=== PATIENT | female | born 1930 | race Caucasian/White ===

== ENCOUNTER 2016-10-06 20:34 | Inpatient (IN) ==
[2016-10-06] MEDS ORDERED: Furosemide 40 MG/4 ML VIAL IVP ONE (21:07)
--- NOTE | 2016-10-06 21:10 | Emergency Department Note ---
Disposition Clinical Impression: Pneumonia Qualifiers: Aspiration pneumonia type: unspecified Laterality: bilateral Lung location: lower lobe of lung Disposition: Admitted As Inpatient Condition: Critical Referrals: Genna Viveros MD [Primary Care Provider] - Forms: ED Satisfaction Letter Time of Disposition: 23:31 SOB HPI - General Chief Complaint: ED Shortness of Breath/Dyspnea Stated Complaint: KENIA Time Seen by Provider: 10/06/16 20:50 Source: EMS Limitations: altered mental status Nursing Notes Reviewed: Yes Vital Signs Reviewed: Yes - History of Present Illness 78-year-old female sent from snf with progressive shortness of breath over the past 2-3 days. She is retaining water. Patient denies any chest pain. Complains of shortness of breath. - Related Data Home Medications Medication Instructions Recorded Confirmed Atorvastatin [Lipitor] 20 mg PO HS 06/12/15 10/06/16 Carboxymethylcellulose Sodium 15 ml OP BID 06/12/15 10/06/16 [Refresh Tears] Chlorhexidine Gluconate [Peridex] 15 ml MM BID 06/12/15 10/06/16 Citalopram [CeleXA] 10 mg PO DAILY 06/12/15 10/06/16 Ergocalciferol (VITAMIN D2) 50,000 unit PO QMONTH 06/12/15 10/06/16 [Vitamin D2 (50,000 UNIT)] Fluticasone Propionate [Flovent 12 gm IH DAILY 06/12/15 10/06/16 Hfa] Furosemide [Lasix] 80 mg PO BID 06/12/15 10/06/16 Loratadine [Claritin] 10 mg PO DAILY 06/12/15 10/06/16 Montelukast [Singulair] 10 mg PO DAILY 06/12/15 10/06/16 Omeprazole [PriLOSEC] 20 mg PO DAILY 06/12/15 10/06/16 Potassium Chloride [Klor-Con 10 meq PO TID 06/12/15 10/06/16 Sprinkle] Ipratropium/Albuterol Neb [Duoneb] 3 ml IH Q2H PRN 04/12/16 10/06/16 Iron Polysaccharide Complex 150 mg PO DAILY 04/12/16 10/06/16 [Ferrex 150] Lisinopril [Zestril] 20 mg PO DAILY 04/12/16 10/06/16 Amoxicillin/Clavulanate [Augmentin] 875 mg PO BIDWM 07/31/16 10/06/16 Anastrozole [Arimidex] 1 mg PO DAILY 07/31/16 10/06/16 Guaifenesin [Mucinex] 600 mg PO BID 07/31/16 10/06/16 Loperamide [Imodium] 2 mg PO Q4HR PRN 07/31/16 10/06/16 Multivitamin,Stress Formula 1 each PO DAILY 07/31/16 10/06/16 [Stress Formula] Allergies Allergy/AdvReac Type Severity Reaction Status Date / Time No Known Allergies Allergy Verified 06/12/15 14:37 Limitations: ROS unobtainable due to patients medical condition Cardiovascular: Denies: chest pain, palpitations, dyspnea on exertion, edema, syncope Respiratory: Reports: dyspnea Gastrointestinal: Denies: abdominal pain, nausea, vomiting, diarrhea, constipation, hematemesis, melena, hematochezia Past Medical History - Past Medical History Medical history: Reports: asthma, CHF, COPD, dementia, diabetes, GERD, hyperlipidemia, hypertension, other Surgical history: Reports: breast surgery Psychiatric history: Reports: anxiety, depression [employer] PERSON history: Reports: no [employer]ERSON history - Social History Smoking Status: Never smoker Smokeless Tobacco Status: No Alcohol use: Reports: none Drug use: Reports: none Physical Exam - General Limitations: altered mental status General appearance: lethargic, in distress - Chest Chest inspection: Present: normal inspection, symmetric chest wall rise - Respiratory Respiratory exam: Present: respiratory distress - Cardiovascular Cardiovascular exam: Present: tachycardia - Abdominal Exam Abdominal exam: Present: soft, Non-Tender. Absent: tenderness, distention, guarding, rebound, rigidity - Extremities Exam Extremities exam: Present: pedal edema - Neurological Exam Neurological exam: Present: alert - Psychiatric Psychiatric exam: Present: depressed - Skin Skin exam: Present: warm Course Vital Signs Temperature 98.1 F 10/06/16 20:46 Pulse Rate 111 10/06/16 20:46 Respiratory Rate 22 10/06/16 20:46 Blood Pressure 100/75 10/06/16 20:46 O2 Sat by Pulse Oximetry 93 L 10/06/16 20:46 Temperature 98.1 F 10/06/16 20:46 Pulse Rate 111 10/06/16 20:46 Respiratory Rate 22 10/06/16 20:46 Blood Pressure 100/75 10/06/16 20:46 O2 Sat by Pulse Oximetry 93 L 10/06/16 20:46 Oxygen Delivery Oxygen Delivery Bipap Shortness of Breath/Dyspnea - MDM Narrative Medical decision making narrative: Diagnosis. Pneumonia Decreased level of consciousness Hypotension ED course. The patient was placed on BiPAP. Adequate oxygenation with BiPAP. IV antibiotics started. Blood cultures is obtained. Fluid bolus given Plan. Lengthy discussion with the family. The son was here. I initially suggested transferring the patient to a tertiary care hospital. He tells me that the family wants comfort care measure. They do not want any aggressive intervention. They want to give the patient a chance for 1-2 days on IV antibiotics. Again, the family requested only Comfort Care measure at this stage. - Lab Data Lab results reviewed: Yes I reviewed the patient's lab results. Result diagrams: 10/06/16 21:45 10/06/16 21:45 Lab Results 10/06/16 10/06/16 10/06/16 Range/Units 21:45 21:45 21:45 WBC 9.9 (4.3-11.1) K/mcL RBC 4.22 (3.82-4.97) M/mcL Hgb 11.9 (11.5-15.4) g/dL Hct 38.0 (35.3-44.9) % MCV 90.0 (83.0-100.0) fL MCH 28.2 (28.0-33.3) pg MCHC 31.3 L (31.6-35.5) g/dL RDW 14.3 (11.5-14.5) % Plt Count 159 (140-400) K/mcL MPV 10.0 (9.4-12.4) fL Immature Gran % 0.5 (0-4) % Seg Neutrophils % 86.0 % Lymphocytes % 9.3 % Monocytes % 3.8 % Eosinophils % 0.3 % Basophils % 0.1 % Neutrophils # 8.5 (1.6-8.9) K/mcL Lymphocytes # 0.9 (0.6-4.6) K/mcL Monocytes # 0.4 (0.0-1.3) K/mcL Eosinophils # 0.0 (0.0-0.6) K/mcL Basophils # 0.0 (0.0-0.2) K/mcL Sodium 134 L (136-145) mEq/L Potassium 3.8 (3.5-4.5) mEq/L Chloride 95 L (98-109) mEq/L Carbon Dioxide 28 (19-29) mEq/L BUN 13 (7-20) mg/dL Creatinine 0.90 (0.57-1.11) mg/dL Est GFR ( Amer) > 60 (> 60) Est GFR (Non-Af Amer) 59 L (> 60) BUN/Creatinine Ratio 14 (6-26) Glucose 194 H (70-99) mg/dL Calculated Osmolality 283 (280-300) Calcium 8.6 (8.6-10.8) mg/dL Total Bilirubin 0.4 (0.2-1.2) mg/dL AST 72 H (5-34) Units/L ALT 50 (0-55) Units/L Alkaline Phosphatase 93 (38-126) Units/L Troponin I 0.11 H* (0-0.03) ng/mL B-Natriuretic Peptide (0-100) pg/mL Serum Total Protein 6.1 (6.0-8.3) g/dL Albumin 2.7 L (3.5-5.0) g/dL Globulin 3.4 (2.4-3.5) g/dL Albumin/Globulin Ratio 0.8 L (1.1-2.2) / Range/Units 21:45 WBC (4.3-11.1) K/mcL RBC (3.82-4.97) M/mcL Hgb (11.5-15.4) g/dL Hct (35.3-44.9) % MCV (83.0-100.0) fL MCH (28.0-33.3) pg MCHC (31.6-35.5) g/dL RDW (11.5-14.5) % Plt Count (140-400) K/mcL MPV (9.4-12.4) fL Immature Gran % (0-4) % Seg Neutrophils % % Lymphocytes % % Monocytes % % Eosinophils % % Basophils % % Neutrophils # (1.6-8.9) K/mcL Lymphocytes # (0.6-4.6) K/mcL Monocytes # (0.0-1.3) K/mcL Eosinophils # (0.0-0.6) K/mcL Basophils # (0.0-0.2) K/mcL Sodium (136-145) mEq/L Potassium (3.5-4.5) mEq/L Chloride (98-109) mEq/L Carbon Dioxide (19-29) mEq/L BUN (7-20) mg/dL Creatinine (0.57-1.11) mg/dL Est GFR ( Amer) (> 60) Est GFR (Non-Af Amer) (> 60) BUN/Creatinine Ratio (6-26) Glucose (70-99) mg/dL Calculated Osmolality (280-300) Calcium (8.6-10.8) mg/dL Total Bilirubin (0.2-1.2) mg/dL AST (5-34) Units/L ALT (0-55) Units/L Alkaline Phosphatase (38-126) Units/L Troponin I (0-0.03) ng/mL B-Natriuretic Peptide 78 (0-100) pg/mL Serum Total Protein (6.0-8.3) g/dL Albumin (3.5-5.0) g/dL Globulin (2.4-3.5) g/dL Albumin/Globulin Ratio (1.1-2.2) - Radiology Data Radiology results reviewed: Yes I reviewed the patient's radiology results. No pneumoperitoneum. The appearance on conventional radiographs is caused by collapse of the middle lobe with aerated right lower lobe beneath. 2. Significant secretions in the middle lobe and right lower lobe airways with complete collapse of the middle lobe and right lower lobe atelectasis or pneumonia. 3. Coronary artery disease. 4. Pulmonary hypertension. 5. Diverticulosis without scan evidence for diverticulitis. 6. Bilateral nonobstructing renal calculi.
[2016-10-06 21:57] LABS: Basophils % 0.1 %; Eosinophils % 0.3 %; Hemoglobin 11.9 g/dL (11.5-15.4); Immature Granulocytes % 0.5 % (0-4); Lymphocytes # 0.9 K/mcL (0.6-4.6); Lymphocytes % 9.3 %; Mean Corpuscular HGB Conc 31.3 g/dL (31.6-35.5); Mean Corpuscular Hemoglobin 28.2 pg (28.0-33.3); Monocytes # 0.4 K/mcL (0.0-1.3); Monocytes % 3.8 %; Neutrophils # 8.5 K/mcL (1.6-8.9); Platelet Count 159 K/mcL (140-400); Red Blood Count 4.22 M/mcL (3.82-4.97); Red Cell Distribution Width 14.3 % (11.5-14.5)
[2016-10-06 22:10] LABS: Albumin 2.7 g/dL (3.5-5.0); Albumin/Globulin Ratio 0.8 (1.1-2.2); Alkaline Phosphatase 93 Units/L (38-126); Bilirubin,Total 0.4 mg/dL (0.2-1.2); Blood Urea Nitrogen 13 mg/dL (7-20); Calcium 8.6 mg/dL (8.6-10.8); Carbon Dioxide 28 mEq/L (19-29); Chloride 95 mEq/L (98-109); Globulin 3.4 g/dL (2.4-3.5); Glucose 194 mg/dL (70-99); Osmolality,Calculated 283 (280-300); Potassium 3.8 mEq/L (3.5-4.5); Sodium 134 mEq/L (136-145); Total Protein 6.1 g/dL (6.0-8.3)
[2016-10-06 22:11] LABS: Alanine Aminotransferase 50 Units/L (0-55); Aspartate Amino Transferase 72 Units/L (5-34); BUN/Creatinine Ratio 14 (6-26); eGFR For African Americans > 60 (> 60); eGFR For Non-African Americans 59 (> 60)
[2016-10-06] MEDS ORDERED: 0.9 % Sodium Chloride 500 ML IVC ONE (23:06)
[2016-10-06] MEDS ORDERED: Levofloxacin 500 MG/100 ML 500 MG/100 ML BAG IVPB ONE ×2 (23:18→23:38)
[2016-10-07] MEDS: Levofloxacin 500 MG/100 ML 500 MG/100 ML BAG IVPB SCH (01:20)
[2016-10-07] MEDS: *HR* Enoxaparin 30 MG/0.3 ML SYRINGE SQ SCH (09:03)
[2016-10-07] MEDS: Ipratropium/Albuterol Neb 3 ML IH PRN ×4 (09:03→21:43)
[2016-10-08] MEDS: Levofloxacin 500 MG/100 ML 500 MG/100 ML BAG IVPB SCH (00:22)
[2016-10-08] MEDS: *HR* Enoxaparin 30 MG/0.3 ML SYRINGE SQ SCH (05:54)
[2016-10-08] MEDS: Ipratropium/Albuterol Neb 3 ML IH PRN ×3 (05:55→15:37)
--- NOTE | 2016-10-08 14:22 | Internal Med Progress Note ---
Date of Encounter: 10/08/16 Time of Encounter: 14:00 - Assessment and plan (1) Pneumonia Current Visit: Yes Status: Resolved Assessment and plan: I will follow chest x-ray. Qualifiers: Qualified Code(s): J18.9 - Pneumonia, unspecified organism (2) COPD (chronic obstructive pulmonary disease) Current Visit: Yes Status: Acute Assessment and plan: A she does have significant COPD. His paternal chronic problem Qualifiers: Qualified Code(s): J44.9 - Chronic obstructive pulmonary disease, unspecified - Time Spent With Patient less than 15 minutes - Subjective Interval history: Patient denies any problems. Go to follow chest x-ray and redo labs in the a.m. Saad also use diuretic - Constitutional Vitals: Temp Pulse Resp BP Pulse Ox 99.4 F 98 22 126/63 94 L 10/08/16 11:43 10/08/16 11:43 10/08/16 11:43 10/08/16 11:43 10/08/16 11:43 - Head Head exam: Present: atraumatic, normal inspection, normocephalic - Neck Neck exam general surgery: Present: supple, trachea midline. Absent: lymphadenopathy - Respiratory Respiratory exam: Present: CTAB. Absent: accessory muscle use, rales, rhonchi, wheezes - Cardiovascular Cardiovascular exam: Present: RRR, +S1, +S2. Absent: diastolic murmur, gallop, rubs, systolic murmur - GI/Abdominal GI/Abdominal exam: Present: normal bowel sounds, soft, no peritoneal signs. Absent: distended, tenderness Internal Medicine: Result - Labs CBC & Chem 7: 10/06/16 21:45 10/06/16 21:45 Labs: Lab is stable Consult Discharge Plan - Plan Referrals: Genna Viveros MD [Primary Care Provider] -
[2016-10-08] MEDS: Furosemide 40 MG TABLET PO SCH (16:47)
[2016-10-09] MEDS: *HR* Enoxaparin 30 MG/0.3 ML SYRINGE SQ SCH (04:48)
[2016-10-09 05:58] LABS: Basophils % 0.2 %; Eosinophils % 0.8 %; Hematocrit 38.5 % (35.3-44.9); Hemoglobin 12.2 g/dL (11.5-15.4); Immature Granulocytes % 0.4 % (0-4); Lymphocytes # 1.1 K/mcL (0.6-4.6); Lymphocytes % 21.9 %; Mean Corpuscular HGB Conc 31.7 g/dL (31.6-35.5); Mean Corpuscular Hemoglobin 28.2 pg (28.0-33.3); Mean Corpuscular Volume 88.9 fL (83.0-100.0); Mean Platelet Volume 10.3 fL (9.4-12.4); Monocytes # 0.7 K/mcL (0.0-1.3); Monocytes % 13.4 %; Neutrophils # 3.2 K/mcL (1.6-8.9); Platelet Count 158 K/mcL (140-400); Red Blood Count 4.33 M/mcL (3.82-4.97); Red Cell Distribution Width 14.5 % (11.5-14.5); Segmented Neutrophils % 63.3 %
[2016-10-09 06:03] LABS: BUN/Creatinine Ratio 17 (6-26); Blood Urea Nitrogen 11 mg/dL (7-20); Calcium 9.1 mg/dL (8.6-10.8); Carbon Dioxide 30 mEq/L (19-29); Chloride 100 mEq/L (98-109); Glucose 96 mg/dL (70-99); Osmolality,Calculated 293 (280-300); Potassium 3.6 mEq/L (3.5-4.5); Sodium 142 mEq/L (136-145); eGFR For African Americans > 60 (> 60); eGFR For Non-African Americans > 60 (> 60)
[2016-10-09] MEDS: Furosemide 40 MG TABLET PO SCH ×2 (08:26→17:35)
[2016-10-09] MEDS: Levofloxacin 750 MG/150 ML 750 MG/150 ML BAG IVPB SCH (08:26)
--- NOTE | 2016-10-09 11:58 | Internal Med History&Physical ---
Date of Encounter: 10/09/16 Time of Encounter: 12:00 Assessment and Plan (1) Pneumonia Current visit: Yes Status: Resolved Patient receiving aggressive pulmonary treatment well without antibiotics. Qualifiers: Qualified Code(s): J18.9 - Pneumonia, unspecified organism (2) COPD (chronic obstructive pulmonary disease) Current visit: Yes Status: Acute Patient has significant history of COPD. She is wheezing prolonged expiratory phase. Qualifiers: Qualified Code(s): J44.9 - Chronic obstructive pulmonary disease, unspecified Internal Medicine - H&P: HPI Admitted From: Emergency Dept Plans for Post Hospital Care: Transfer Long-Term Facility History of present illness: Ms. Cheng is a 86 year old female Past Med Surg Social Fam HX - Past Medical History Medical history: arthritis, asthma, cancer, CHF, COPD, dementia, diabetes, GERD , hyperlipidemia, hypertension, other Psychiatric history: anxiety, depression - Past Surgical History Surgical History: breast surgery - Social History Smoking Status: Never smoker Smokeless Tobacco Status: No Alcohol use: none Drug use: none - Family History Mother History Unknown: Yes Father History Unknown: Yes Living Status: Internal Medicine - H&P: Meds Atorvastatin [Lipitor] 20 mg PO HS 06/12/15 [History] Carboxymethylcellulose Sodium [Refresh Tears] 1 drop OP BID 06/12/15 [History] Chlorhexidine Gluconate [Peridex] 15 ml MM BID 06/12/15 [History] Citalopram [CeleXA] 5 mg PO DAILY 06/12/15 [History] Ergocalciferol (VITAMIN D2) [Vitamin D2 (50,000 UNIT)] 50,000 unit PO QMONTH [History] Furosemide [Lasix] 80 mg PO BID 06/12/15 [History] Loratadine [Claritin] 10 mg PO DAILY 06/12/15 [History] Montelukast [Singulair] 10 mg PO DAILY 06/12/15 [History] Omeprazole [PriLOSEC] 20 mg PO DAILY 06/12/15 [History] Potassium Chloride [Klor-Con Sprinkle] 10 meq PO BID 06/12/15 [History] Ipratropium/Albuterol Neb [Duoneb] 3 ml IH Q6H 04/12/16 [History] Iron Polysaccharide Complex [Ferrex 150] 150 mg PO DAILY 04/12/16 [History] Lisinopril [Zestril] 20 mg PO DAILY 04/12/16 [History] Amoxicillin/Clavulanate [Augmentin] 875 mg PO BIDWM 07/31/16 [History] Anastrozole [Arimidex] 1 mg PO DAILY 07/31/16 [History] Guaifenesin [Mucinex] 600 mg PO BID 07/31/16 [History] Loperamide [Imodium] 2 mg PO Q6H PRN 07/31/16 [History] Multivitamin,Stress Formula [Stress Formula] 1 each PO DAILY 07/31/16 [History] Fluticasone Propionate Nasal [Flonase] 2 spray NS DAILY 10/07/16 [History] Fluticasone/Vilanterol [Breo Ellipta 200-25 Mcg INH] 1 each IH DAILY 10/07/16 [ History] Allergies No Known Allergies Allergy (Verified 06/12/15 14:37) All Systems PM: A 10-system review of systems was performed and is negative for pertinent findings except as documented above in the HPI. - Constitutional Vitals: Temp Pulse Resp BP Pulse Ox 97.7 F 85 16 114/82 94 L 10/09/16 11:47 10/09/16 11:47 10/09/16 11:47 10/09/16 11:47 10/09/16 11:47 - Head Head exam: Present: atraumatic, normal inspection, normocephalic - Neck Neck exam general surgery: Present: supple, trachea midline. Absent: lymphadenopathy - Respiratory Respiratory exam: Present: decreased breath sounds, CTAB, prolonged expiratory phase, respiratory distress. Absent: accessory muscle use, rales, rhonchi, wheezes - Cardiovascular Cardiovascular exam: Present: RRR, +S1, +S2. Absent: diastolic murmur, gallop, rubs, systolic murmur Internal Med - H&P Results - Labs CBC & Chem 7: 10/09/16 05:15 10/09/16 05:15 Labs: Testing lab is stable Short CBC 10/09/16 Range/Units 05:15 WBC 5.1 (4.3-11.1) K/mcL Hgb 12.2 (11.5-15.4) g/dL Hct 38.5 (35.3-44.9) % Plt Count 158 (140-400) K/mcL Neutrophils # 3.2 (1.6-8.9) K/mcL BMP 10/09/16 05:15 Sodium 142 D Potassium 3.6 Chloride 100 Carbon Dioxide 30 H BUN 11 Creatinine 0.65 Glucose 96 Calcium 9.1 - Impressions ITS Impressions Chest X-Ray 10/09/16 14:18 IMPRESSION: Improved aeration of the lungs bilaterally since the prior exam with some residual pleural and parenchymal disease. D/ / Donnell Chiu MD / Donnell Chiu MD Interpreting Provider: Donnell Chiu MD
--- NOTE | 2016-10-09 18:43 | Venous Imaging Report ---
LE Venous Duplex Patient Name:Holley Cheng Order Number:[id number] Procedure Date:10/09/2016 Date:1930ge:86 yrs Gender:Female Location:[facility] Room #: 114 Cable Splicing Technician:Janeen Wang RVT Referring MD:Winston Adams DO creasing and cutting press feeder:Genna Viveros MD Reading MD:Moe Newberry MD Primary Indications:left leg evaluation for DVT Secondary Indications: Risk Factors Yes/No Hx of DVT No Impressions: Normal left lower extremity deep and superficial venous exam. Normal contralateral common femoral vein. Recommendations: Critical findings reported to Dr Adams in person by Janeen Wang RVT. Findings Venous Duplex Results: Right: Venous imaging of the lower extremity reveals full patency and normal vessel compressibility of the right common femoral. Doppler signals in the evaluated veins were normal. Left: Venous imaging of the lower extremity reveals full patency and normal vessel compressibility of the left distal iliac, left common femoral, left superficial femoral, left popliteal, left posterior tibial and left lesser saphenous. Doppler signals in the evaluated veins were normal. Prior Study: No prior study available for comparison. Lower Extremity Venous Duplex Side Vein Compress Spontaneous Flow Augment Diameter (cm) Depth (cm) Left Distal Iliac Normal Yes Phasic Yes Left Common Femoral Normal Yes Phasic Yes Left Superficial Femoral Normal Yes Phasic Yes Left Popliteal Normal Yes Phasic Yes Left Posterior Tibial Normal Yes Phasic Yes Left Lesser Saphenous Normal Yes Phasic Yes Right Common Femoral Normal Yes Phasic Yes Updated by Moe Newberry MD on 10/09/2016 6:37:47 PM electronically signed on 10/09/2016 6:38:01 PM with status of Final
[2016-10-10] MEDS: *HR* Enoxaparin 40 MG/0.4 ML SYRINGE SQ SCH (06:49)
[2016-10-10] MEDS: Furosemide 40 MG TABLET PO SCH ×2 (11:03→17:57)
--- NOTE | 2016-10-10 13:29 | Internal Med Progress Note ---
Date of Encounter: 10/10/16 Time of Encounter: 13:00 - Assessment and plan (1) Pneumonia Current Visit: Yes Status: Resolved Assessment and plan: We will follow chest x-ray for the a.m. and continue supportive care Qualifiers: Qualified Code(s): J18.9 - Pneumonia, unspecified organism (2) COPD (chronic obstructive pulmonary disease) Current Visit: Yes Status: Acute Assessment and plan: Mostly this is chronic condition here. Qualifiers: Qualified Code(s): J44.9 - Chronic obstructive pulmonary disease, unspecified - Subjective Interval history: Patient still has some wheezing and scattered rhonchi. Color is good sats are good and I think that there is possibility she may go back on Wednesday patient is eating fairly well. - Constitutional Vitals: Temp Pulse Resp BP Pulse Ox 98.6 F 87 16 145/92 95 10/10/16 11:00 10/10/16 11:00 10/10/16 11:00 10/10/16 11:00 10/10/16 11:00 - Head Head exam: Present: atraumatic, normal inspection, normocephalic - Neck Neck exam general surgery: Present: supple, trachea midline. Absent: lymphadenopathy - Respiratory Respiratory exam: Present: CTAB. Absent: accessory muscle use, rales, rhonchi, wheezes - Cardiovascular Cardiovascular exam: Present: RRR, +S1, +S2. Absent: diastolic murmur, gallop, rubs, systolic murmur Internal Medicine: Result - Labs CBC & Chem 7: 10/09/16 05:15 10/09/16 05:15 Labs: Lab was stable Consult Discharge Plan - Plan Referrals: Genna Viveros MD [Primary Care Provider] -
[2016-10-11] MEDS: Ipratropium/Albuterol Neb 3 ML IH PRN ×2 (02:05→21:05)
[2016-10-11] MEDS: *HR* Enoxaparin 40 MG/0.4 ML SYRINGE SQ SCH (06:00)
[2016-10-11] MEDS: Levofloxacin 750 MG/150 ML 750 MG/150 ML BAG IVPB SCH (09:55)
[2016-10-11] MEDS: Furosemide 40 MG TABLET PO SCH ×2 (09:55→17:48)
--- NOTE | 2016-10-11 12:42 | Internal Med Progress Note ---
Date of Encounter: 10/11/16 Time of Encounter: 12:00 - Assessment and plan (1) Pneumonia Current Visit: Yes Status: Resolved Assessment and plan: We will target his side but Qualifiers: Qualified Code(s): J18.9 - Pneumonia, unspecified organism (2) COPD (chronic obstructive pulmonary disease) Current Visit: Yes Status: Acute Assessment and plan: Reticulocyte COPD. Qualifiers: Qualified Code(s): J44.9 - Chronic obstructive pulmonary disease, unspecified - Time Spent With Patient less than 15 minutes - Subjective Interval history: Patient still has some wheezing and scattered rhonchi. Color is good sats are good and I think that there is possibility she may go back on Wednesday patient is eating fairly well. She is coming along. Most of this is chronic at this point but I will check chest x-ray. 1 radiologist said that was by basilar atelectasis another set bibasilar infiltrates. Signs are stable and she is afebrile - Constitutional Vitals: Temp Pulse Resp BP Pulse Ox 97.7 F 80 22 126/88 96 10/11/16 07:00 10/11/16 07:00 10/11/16 07:00 10/11/16 07:00 10/11/16 07:00 - Head Head exam: Present: atraumatic, normal inspection, normocephalic - Neck Neck exam general surgery: Present: supple, trachea midline. Absent: lymphadenopathy - Respiratory Respiratory exam: Present: CTAB. Absent: accessory muscle use, rales, rhonchi, wheezes - Cardiovascular Cardiovascular exam: Present: RRR, +S1, +S2. Absent: diastolic murmur, gallop, rubs, systolic murmur - GI/Abdominal GI/Abdominal exam: Present: normal bowel sounds, soft, no peritoneal signs. Absent: distended, tenderness Internal Medicine: Result - Labs CBC & Chem 7: 10/09/16 05:15 10/09/16 05:15 Labs: Lab is stable - Impressions Impressions Chest X-Ray 10/11/16 13:30 IMPRESSION: 1. Stable chest x-ray. D/ / 10/11/2016 08:36:33 Silvano Groves MD / javy Interpreting Provider: Silvano K. Germain, MD Consult Discharge Plan - Plan Referrals: Genna Viveros MD [Primary Care Provider] -
[2016-10-12] MEDS: *HR* Enoxaparin 40 MG/0.4 ML SYRINGE SQ SCH (05:48)
[2016-10-12] MEDS: Furosemide 40 MG TABLET PO SCH (09:39)
[2016-10-12] MEDS: Ipratropium/Albuterol Neb 3 ML IH PRN (09:40)
--- NOTE | 2016-10-12 13:27 | Discharge Summary ---
Date of Encounter: 10/12/16 Time of Encounter: 13:00 - Discharge Diagnosis (1) Pneumonia Priority: Primary Status: Acute Comments: Bibasilar infiltrates it is possible this may be atelectasis. Qualifiers: Qualified Code(s): J18.9 - Pneumonia, unspecified organism (2) COPD (chronic obstructive pulmonary disease) Priority: Primary Status: Chronic Comments: Chronic problem Qualifiers: COPD type: emphysema Qualified Code(s): J43.9 - Emphysema, unspecified - Discharge Medications Home Medications: Atorvastatin [Lipitor] 20 mg PO HS 06/12/15 [History] Carboxymethylcellulose Sodium [Refresh Tears] 1 drop OP BID 06/12/15 [History] Chlorhexidine Gluconate [Peridex] 15 ml MM BID 06/12/15 [History] Citalopram [CeleXA] 5 mg PO DAILY 06/12/15 [History] Ergocalciferol (VITAMIN D2) [Vitamin D2 (50,000 UNIT)] 50,000 unit PO QMONTH [History] Furosemide [Lasix] 80 mg PO BID 06/12/15 [History] Loratadine [Claritin] 10 mg PO DAILY 06/12/15 [History] Montelukast [Singulair] 10 mg PO DAILY 06/12/15 [History] Omeprazole [PriLOSEC] 20 mg PO DAILY 06/12/15 [History] Potassium Chloride [Klor-Con Sprinkle] 10 meq PO BID 06/12/15 [History] Ipratropium/Albuterol Neb [Duoneb] 3 ml IH Q6H 04/12/16 [History] Iron Polysaccharide Complex [Ferrex 150] 150 mg PO DAILY 04/12/16 [History] Lisinopril [Zestril] 20 mg PO DAILY 04/12/16 [History] Amoxicillin/Clavulanate [Augmentin] 875 mg PO BIDWM 07/31/16 [History] Anastrozole [Arimidex] 1 mg PO DAILY 07/31/16 [History] Guaifenesin [Mucinex] 600 mg PO BID 07/31/16 [History] Loperamide [Imodium] 2 mg PO Q6H PRN 07/31/16 [History] Multivitamin,Stress Formula [Stress Formula] 1 each PO DAILY 07/31/16 [History] Fluticasone Propionate Nasal [Flonase] 2 spray NS DAILY 10/07/16 [History] Fluticasone/Vilanterol [Breo Ellipta 200-25 Mcg INH] 1 each IH DAILY 10/07/16 [ History] Levofloxacin [Levofloxacin] 10/12/16 [History] Levofloxacin [Levofloxacin] PO DAILY 10/12/16 [History] Allergies/Adverse Reactions: Allergies No Known Allergies Allergy (Verified 06/12/15 14:37) Procedures/tests Complete & Pending: Procedures Performed prior 72 hours Category Date Time Status Venous Ultrasound [EV venous imaging LE LT] Routine Y 10/09/16 16:35 Completed Date of admission: 10/07/16 11:42 Primary care physician: Genna Viveros Discharging clinician: Winston Adams Anticipated date of discharge: 10/12/16 - Patient Status Disposition: Transfer SNF Condition: Fair Functional capacity at discharge: bed bound Overall status at discharge: patient is progressing back to baseline - Discharge Instructions Follow Up With: Genna Viveros MD [Primary Care Provider] - - Diet and Activity Activity: resume usual activities as tolerated Diet: advance to your usual diet Hospital course: Ms. Cheng is a 86 year old female - Time Spent with Patient Total time spent providing and/or coordinating discharge services: Less than 30 minutes - Constitutional Vitals: Temp Pulse Resp BP Pulse Ox 98.2 F 68 18 113/65 94 L 10/12/16 11:48 10/12/16 11:48 10/12/16 11:48 10/12/16 11:48 10/12/16 11:48 - Head Head exam: Present: atraumatic, normal inspection, normocephalic - Neck Neck exam general surgery: Present: supple, trachea midline. Absent: lymphadenopathy - Respiratory Respiratory exam: Present: CTAB. Absent: accessory muscle use, rales, rhonchi, wheezes - Cardiovascular Cardiovascular exam: Present: RRR, +S1, +S2. Absent: diastolic murmur, gallop, rubs, systolic murmur - GI/Abdominal GI/Abdominal exam: Present: normal bowel sounds, soft, no peritoneal signs. Absent: distended, tenderness
--- NOTE | 2016-10-12 13:35 | Physician Discharge Referral ---
[facility] Referral Info Transfer To: ECF Provider in Charge after Transfer: PCP Institutional Level of Care: Skilled - Diagnosis (1) Pneumonia Status: Acute (2) COPD (chronic obstructive pulmonary disease) Priority: Primary Status: Chronic Prognosis: Fair Aware of Diagnosis: Family Aware of Prognosis: Family - Transfer Medications Home Medications: Atorvastatin [Lipitor] 20 mg PO HS 06/12/15 [History] Carboxymethylcellulose Sodium [Refresh Tears] 1 drop OP BID 06/12/15 [History] Chlorhexidine Gluconate [Peridex] 15 ml MM BID 06/12/15 [History] Citalopram [CeleXA] 5 mg PO DAILY 06/12/15 [History] Ergocalciferol (VITAMIN D2) [Vitamin D2 (50,000 UNIT)] 50,000 unit PO QMONTH [History] Furosemide [Lasix] 80 mg PO BID 06/12/15 [History] Loratadine [Claritin] 10 mg PO DAILY 06/12/15 [History] Montelukast [Singulair] 10 mg PO DAILY 06/12/15 [History] Omeprazole [PriLOSEC] 20 mg PO DAILY 06/12/15 [History] Potassium Chloride [Klor-Con Sprinkle] 10 meq PO BID 06/12/15 [History] Ipratropium/Albuterol Neb [Duoneb] 3 ml IH Q6H 04/12/16 [History] Iron Polysaccharide Complex [Ferrex 150] 150 mg PO DAILY 04/12/16 [History] Lisinopril [Zestril] 20 mg PO DAILY 04/12/16 [History] Amoxicillin/Clavulanate [Augmentin] 875 mg PO BIDWM 07/31/16 [History] Anastrozole [Arimidex] 1 mg PO DAILY 07/31/16 [History] Guaifenesin [Mucinex] 600 mg PO BID 07/31/16 [History] Loperamide [Imodium] 2 mg PO Q6H PRN 07/31/16 [History] Multivitamin,Stress Formula [Stress Formula] 1 each PO DAILY 07/31/16 [History] Fluticasone Propionate Nasal [Flonase] 2 spray NS DAILY 10/07/16 [History] Fluticasone/Vilanterol [Breo Ellipta 200-25 Mcg INH] 1 each IH DAILY 10/07/16 [ History] Levofloxacin [Levofloxacin] 10/12/16 [History] Levofloxacin [Levofloxacin] PO DAILY 10/12/16 [History] Allergies/Adverse Reactions: Allergies No Known Allergies Allergy (Verified 06/12/15 14:37) - Respiratory Orders Smoking Cessation: Smoking cessation has been advised. For more information, call the [place] Tobacco Quit Line at 5-247-WDAV-NOW. - Ancillary Orders May use pressure relief devices daily prn, May consult with Dentist, Sales Architect, Donor Specialist PRN - Advance Directives Living Will: Yes Power of Hydroelectric Plant Mechanical Engineer: Yes Code Status: DNR-Arrest/Don't Intubate - Rehabiliation Orders Rehab Orders: ROM Exercises, Evaluation for Physical Therapy - Treatments May check for fecal impaction rectally daily PRN, Fleet enema rectally every other day PRN cleansing purposes - Diet Orders Cardiac CERTIFICATION: I certify that the transfer of the above named patient to an Extended Care Facility is necessary for the continuing treatment of the diagnosis listed. The above information is true and accurate reflection of patient's current condition. Confidential - Redisclosure prohibited without a patient's written consent.
[2016-10-12 16:46] VITALS: BP 109/64
== END 2016-10-12 17:45 | DRG 190 ==
LOC: INPGRE 20:34 → EMEROOGRE 20:34 → INPGRE 10-07 00:10
PROVIDERS: ADMIT Internal Medicine; ATTEND Internal Medicine